=== PATIENT | female | born 1960 | race African-American/Black ===

== ENCOUNTER 2017-08-06 07:14 | Emergency (ER) | payer OTHER ==
[~2017-08-06] VITALS: Ht 180.3 cm; Wt 68.0 kg
[2017-08-06 07:18] VITALS: BP 155/96
[2017-08-06] MEDS ORDERED: NORCO 10-325 T1 EACH ORAL (07:21)
[2017-08-06] MEDS ORDERED: DOXYCYCLINE MO100 MG ORAL (07:21)
[2017-08-06] MEDS ORDERED: NORCO 5-325 TA1 EACH ORAL (07:38)
[2017-08-06] MEDS ORDERED: BACTRIM DS TAB1 EAC1 ORAL (07:38)
--- NOTE | 2017-08-06 07:49 | Emergency Room Report ---
History of Present Illness General Chief Complaint: General Complaint Source: Patient, EMS Present Illness HPI [id number] with concern for wound infection of left breast s/p distant mastectomy for breast cancer. Endorses "bad smell" with scant discharge. No bleeding. No fever/chills. Also endorses "right breast getting worse" with associated pain to area for 3-4 months, but hasnt had mammogram of right breast and hasnt followed up with breast surgeon for right breast evaluation stating she wasnt happy with what was done with left side. Endorses 2-3 years of chronic left upper extremity swelling since surgery. States "decreased flow from lymphadenopathy." Patient endorses hospital admission last month - June - for 4 days for IV abx for wound infection. Was given Doxycycline to take BID at home but only been taking once a day, still taking currently. Also states was given [place] but ran out of Rx. Allergies: Coded Allergies: No Known Allergies (Unverified , 08/06/17) Patient History Past Medical History: other - breast CA Past Surgical History: other - mastectmy Pertinent Family History: none Social History: Denies: smoking, alcohol use, drug use Now: No Immunizations: UTD Reviewed Nursing Documentation: PMH: Agreed, PSxH: Agreed Nursing Documentation-PMH Past Medical History: No History, Except For Hx Cancer: Yes - LEFT Hx Gastrointestinal Problems: Yes - hysterectomy Review of Systems All Other Systems: negative except mentioned in HPI Physical Exam Vital Signs Date Time Temp Pulse Resp B/P (MAP) Pulse Ox O2 Delivery O2 Flow Rate FiO2 08/06/17 07:18 98.2 111 20 155/96 97 Room Air Sp02 EP Interpretation: reviewed, normal General Appearance: normal inspection, well appearing, no apparent distress, alert, GCS 15, non-toxic Head: normocephalic, atraumatic Eyes: bilateral eye PERRL, bilateral eye EOMI ENT: normal ENT inspection, hearing grossly normal, normal pharynx, no angioedema, normal voice, TMs + canals normal, uvula midline, moist mucus membranes Neck: normal inspection, full range of motion, supple, thyroid normal, no meningismus, no bony tend Respiratory: normal inspection, lungs clear, normal breath sounds, no rhonchi, no respiratory distress, no retraction, no accessory muscle use, no wheezing, speaking full sentences, other - Exam of breasts done with JACY Hadley present: Right breast: obvious deformity, nipple inverted. Left chest s/p mastectomy; scant yellow discharge on pad. No obvious oozing. Mild wound dehiscence, poorly healing. No obvious erythema. Cardiovascular #1: regular rate, rhythm, no edema, no JVD, normal capillary refill Gastrointestinal: normal inspection, normal bowel sounds, non tender, soft, no mass, no peritonitis, non-distended, no guarding, no hernia, no pulsatile mass Genitourinary: no CVA tenderness Musculoskeletal: normal inspection, back normal, normal range of motion, no calf tenderness, pelvis stable, Fab's Sign negative Neurologic: normal inspection, alert, oriented x3, responsive, public relations specialist III-XII nml as tested, motor strength/tone normal, cerebellar normal, normal gait, speech normal Psychiatric: normal inspection, judgement/insight normal, mood/affect normal, no suicidal/homicidal ideation, no delusions Skin: normal inspection, normal color, no rash Lymphatic: other - Left arm swelling, non-pitting edema Medical Decision Making Diagnostic Impression: Primary Impression: Wound cellulitis Additional Impressions: Chronic acquired lymphedema Post-mastectomy pain Post-mastectomy deformity of breast ER Course VSS. Afebrile Questionable mild cellulitis of wound to left chest sp mastectomy Wound is definitely chronic since surgery was multiple years ago I question the use of doxycycline in this case - and patient has been non- compliant with dosing as well. Recommended STOP Doxy, switch to Bactrim Rx [place] given for pain as well Patient has Medical - advised call PMD for new breast surgeon referral, mammogram of right breast Patient otherwise well appearing, is mild tachycardic on vitals likely d/t pain of right breast Left arm swelling is also chronic as noted by patient and d/t decreased flow from breast CA associated lymphedema ER course: Patient has remained stable during ED stay. Disposition: Patient is to be discharged to home. Prescriptions given are bactrim, norco Patient is instructed to follow up with their primary care doctor within 5 days for breast surgeon referral Strict return precautions discussed with patient such as fever, chills, worsening/severe pain, nausea, vomiting, which may indicate severe illness. Patient verbalizes understanding and agrees with plan. Please note that this Emergency Department Report was dictated using [employer] driver technology software, occasionally this can lead to erroneous entry secondary to interpretation by the dictation equipment Last Vital Signs Date Time Temp Pulse Resp B/P (MAP) Pulse Ox O2 Delivery O2 Flow Rate FiO2 08/06/17 07:18 98.2 111 20 155/96 97 Room Air Status: improved Disposition: HOME, SELF-CARE Condition: Improved Scripts Hydrocodone Bit/Acetaminophen 5-325* (NORCO 5-325*) 1 Each Tablet 1 TAB ORAL BID Y for For Pain for 7 Days, #14 TAB 0 Refills Prov: JIMBO DAVIES M.D. 08/06/17 Trimethoprim/Sulfamethoxazole 160/800* (BACTRIM DS TABLET*) 1 Each Tablet 1 TAB ORAL Q12H for 7 Days, #14 TAB 0 Refills Prov: JIMBO DAVIES M.D. 08/06/17 Patient Instructions: Cellulitis, [id number] Additional Instructions: - STOP doxycycline - Start bactrim twice a day for 7 days until finished - Take [place] as needed for pain - Call or go to your primary doctor office for referral to breast surgeon JIMBO DAVIES M.D. Aug 06, 2017 07:49
[2017-08-06 08:00] VITALS: BP 155/96
== END 2017-08-06 08:00 | disposition home or self-care (01) ==
LOC: EMR 07:34
DX: T81.4XXA Infection following a procedure, initial encounter (principal); N61.0 Mastitis without abscess; I89.0 Lymphedema, not elsewhere classified; Z90.12 Acquired absence of left breast and nipple; Z85.3 Personal history of malignant neoplasm of breast; Z90.710 Acquired absence of both cervix and uterus; Y83.8 Other surgical procedures as the cause of abnormal reaction of the patient, or of later complication, without mention of misadventure at the time of the procedure; Y92.9 Unspecified place or not applicable
CPT/HCPCS: 99283